=== PATIENT | male | born 1955 | race Caucasian/White ===

== ENCOUNTER 2017-07-16 13:21 | Outpatient (CLI) | payer OTHER ==
--- NOTE | 2017-07-16 15:49 | MRI ---
MRI OF THE LEFT KNEE WITHOUT CONTRAST: 07/16/17 INDICATION: Swelling left hand and fingers for six weeks. COMPARISON: None. FINDINGS: There is nonspecific joint effusion involving the index finger MCP joint without overt changes of ero sions. There is fluid in the flexor tendon sheath of the index and ring finger extending back near to the le elda of the distal aspect of the transverse carpal ligament. The extensor tendons appear within normal limits. There is some mild edema seen involving the volar intrinsic hand musculature, particularly along the radial aspect of the index finger metacarpal. There is some mild edema seen within the left long finger adjacent to the PIP and DIP joints. This is similar appearance to the left ring finger. There is no evidence of muscular atrophy. The visualized aspects of the wrist carpus appear within no rmal limits. IMPRESSION: 1. Findings of nonspecific flexor tenosynovitis of the ring and index finger. There is also some mild soft tissue edema involving intrinsic hand musculature of the volar aspect of the hand but part icularly on the radial aspect of the index finger metacarpal. There is also some nonspecific mild shlomo ma involving the bones surrounding the PIP and DIP joints of the long and ring finger. 2. Overall, all the findings can be seen with inflammatory arthropathy such as psoriatic arthrit is. Rheumatoid arthritis is felt to be less likely. Connective tissue disorders could also induce a s imilar pattern. Recommend correlation with patient's radiographs of the left hand for any changes of periarticular erosive change or osteopenia. Would recommend rheumatology consultation. POS: [facility]
== END 2017-07-16 13:22 | disposition home or self-care (01) ==
LOC: SCSMRI 13:21
PROVIDERS: ATTEND Orthopaedic Surgery
DX: M65.9 Synovitis and tenosynovitis, unspecified (principal); R60.0 Localized edema